=== PATIENT | male | born 1970 | race Caucasian/White ===

== ENCOUNTER 2019-02-07 19:18 | Emergency (ER) | payer BC ==
[~2019-02-07 19:18] MED LIST: CEPHALEXIN500 M1 PO; LIDEX 0.05% CRE15 GM T; PREDNISONE20 M1 PO; VICODIN 5/500 505 MG PO
[2019-02-07 19:51] LABS: BASO # 0.1 10*3/uL (0.0-0.1); BASO % 0.6 % (0.0-1.0); EOS # 0.2 10*3/uL (0.0-0.4); EOS % 2.3 % (1.0-4.0); HEMATOCRIT 44.9 % (42.0-52.0); HEMOGLOBIN 14.8 g/dl (14.0-18.0); LYMPH # 4.4 10*3/uL (1.3-4.4); MEAN CELL VOLUME 86.2 fl (80.0-94.0); MEAN CORPUSCULAR HGB 28.4 pg (27.0-31.0); MEAN PLATELET VOLUME 9.5 fl (9.6-12.3); MONO # 0.9 10*3/uL (0.1-1.0); NEUT % 41.9 % (47.0-73.0); PLATELET COUNT AUTOMATED 241 10*3/uL (130-400); RED BLOOD COUNT 5.21 10*6/uL (4.50-5.90); RED CELL DISTRI WIDTH 13.1 % (0-14.5); WHITE BLOOD COUNT 9.6 10*3/uL (4.8-10.8)
[2019-02-07 20:04] LABS: INTERNATIONAL NORM RATIO 0.9 (2.0-3.5)
[2019-02-07 20:06] LABS: ALBUMIN 3.6 gm/dl (3.1-4.5); ALKALINE PHOSPHATASE 77 U/L (45-117); BUN 15 mg/dl (7-24); CHLORIDE 106 mmol/L (98-107); CREATININE 1.14 mg/dL (0.70-1.30); SGOT/AST 5 IU/L (3-35); SGPT/ALT 32 U/L (12-78); SODIUM 142 mmol/L (136-145)
[2019-02-07] MEDS ORDERED: NAPROSYN500 MG PO (20:08)
== END 2019-02-07 20:10 | disposition home or self-care (01) ==
LOC: ED 19:18
PROVIDERS: Nurse Practitioner Family
DX: M76.892 Other specified enthesopathies of left lower limb, excluding foot (principal); Z79.899 Other long term (current) drug therapy; Z79.2 Long term (current) use of antibiotics

== ENCOUNTER → 2019-04-18 | Emergency (ER) | payer BC ==
[~2019-04-18] VITALS: Ht 177.8 cm; Wt 117.9 kg
[~2019-04-18] MED LIST changes: +NAPROSYN500 MG PO; +TAMIFLU 75MG CA75 MG PO
== END ==
LOC: ED 05:10
DX: J10.1 Influenza due to other identified influenza virus with other respiratory manifestations (principal)

== ENCOUNTER → 2021-01-15 | Outpatient (CLI) | payer BC ==
[~2021-01-15] MED LIST changes: +DECADRON6 M1 PO; +ZESTRIL10 MG PO; +ZOFRAN4 MG PO
== END | disposition home or self-care (01) ==
LOC: COVID19 16:15
PROVIDERS: ATTEND Internal Medicine
DX: U07.1 COVID-19 (principal)

== ENCOUNTER 2021-01-20 06:35 | Emergency (ER) | payer BC ==
[~2021-01-20] VITALS: Ht 180.3 cm; Wt 117.9 kg
[~2021-01-20 06:35] MED LIST changes: -DECADRON6 M1 PO; -ZESTRIL10 MG PO; -ZOFRAN4 MG PO
[2021-01-20] MEDS ORDERED: DECADRON6 M1 PO ×2 (09:10)
[2021-01-20] MEDS ORDERED: ZOFRAN4 MG PO ×2 (09:10)
[2021-01-25] MEDS ORDERED: ZESTRIL10 MG PO (15:38)
== END 2021-01-20 09:37 | disposition home or self-care (01) ==
LOC: ED 06:35
DX: B34.9 Viral infection, unspecified (principal)

== ENCOUNTER 2021-01-24 15:06 | Emergency (ER) | payer BC ==
[~2021-01-24] VITALS: Ht 180.3 cm; Wt 122.5 kg
[~2021-01-24 15:06] MED LIST changes: +DECADRON6 M1 PO; +ZOFRAN4 MG PO
[2021-01-25] MEDS ORDERED: ZESTRIL10 MG PO (15:38)
== END 2021-01-24 17:00 | disposition left against medical advice (07) ==
LOC: ED 15:06
DX: R53.83 Other fatigue (principal); R11.0 Nausea; Z53.21 Procedure and treatment not carried out due to patient leaving prior to being seen by health care provider